=== PATIENT | male | born 1995 | race Asian ===

== ENCOUNTER 2018-05-26 23:21 | Emergency (ER) | payer OTHER ==
[~2018-05-26] VITALS: Ht 175.3 cm; Wt 96.6 kg
[2018-05-26 23:28] VITALS: Ht 175.3 cm; Wt 96.6 kg
[2018-05-27 00:24] VITALS: BP 116/69
== END 2018-05-27 00:24 | disposition home or self-care (01) ==
LOC: ED 23:21
DX: N13.2 Hydronephrosis with renal and ureteral calculous obstruction (principal)
CPT/HCPCS: J1885; Q0092; Q0162